=== PATIENT | female | born 1985 | race Caucasian/White ===

== ENCOUNTER 2021-11-29 06:10 | Emergency (ER) | payer MEDICAID ==
[~2021-11-29] VITALS: Ht 160 cm; Wt 59.9 kg
[2021-11-29 06:17] VITALS: BP 124/77
--- NOTE | 2021-11-29 06:23 | NUR ---
PT TAKEN TO BED 08.
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
--- NOTE | 2021-11-29 06:44 | NUR ---
[address] [place] [address] CONTACTED REFERENCE NUMBER [id number], SPOKE TO DISPATCH RICKIE. PAUL STATED THEY WILL PD OUT AND SEE IF THEY CAN COLLECT MORE INFORMATION AND WILL CONTACT [place] PD IF NEEDED.
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
[2021-11-29] MEDS ORDERED: MORPHINE SULFATE 4 MG/ML SYR IVP ONE (06:50)
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
[2021-11-29 07:33] LABS: BASOPHILS % (AUTO) 0.3 % (0.0-2.0); EOSINOPHILS % (AUTO) 0.5 % (0.0-4.0); HEMATOCRIT 34.4 % (36-48); HEMOGLOBIN 11.5 g/dL (12.0-16.0); LYMPHOCYTES # (AUTO) 1.2 K/uL (2.5-16.5); LYMPHOCYTES % (AUTO) 19.9 % (20.5-51.1); MEAN CORPUSCULAR HEMOGLOBIN 29 pg (27-31); MEAN CORPUSCULAR HGB CONC 33 g/dL (33-37); MONOCYTES # (AUTO) 0.5 K/uL (0.8-1.0); MONOCYTES % (AUTO) 8.2 % (1.7-9.3); NEUTROPHILS # (AUTO) 4.1 K/uL (1.8-7.7); NEUTROPHILS % (AUTO) 71.1 % (42.2-75.2); PLATELET COUNT (AUTO) 231 K/uL (140-450); RED BLOOD CELL COUNT(AUTO) 3.96 MIL/uL (4.20-5.40); RED CELL DISTRIBUTION WIDTH 13.9 % (11.6-13.7); WHITE BLOOD COUNT (AUTO) 5.8 K/uL (4.8-10.8)
[2021-11-29 07:38] LABS: PROTHROMBIN TIME 11.6 secs (10.8-13.4)
[2021-11-29 07:45] LABS: ALBUMIN 3.7 g/dL (3.4-5.0); ANION GAP 8.4 (8-16); CARBON DIOXIDE 27.9 mmol/L (21-32); CREATININE 0.7 mg/dL (0.6-1.3); POTASSIUM 3.3 mmol/L (3.5-5.1); TOTAL BILIRUBIN 0.4 mg/dL (0.0-1.0)
--- NOTE | 2021-11-29 07:45 | NUR ---
PT TO CT VIA WHEELCHAIR
--- NOTE | 2021-11-29 07:48 | NUR ---
RECIEVED REPORT FROM SEJAL LOPEZ
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
--- NOTE | 2021-11-29 08:08 | NUR ---
PT BACK FROM CT. SIDE RAILS UP X1. PT RESTING IN BED
[2021-11-29] MEDS ORDERED: LIDOCAINE 2% 1000 MG/50 ML VIAL INJ ONE (08:45)
--- NOTE | 2021-11-29 09:07 | NUR ---
SUTURE SET UP AT BEDSIDE
--- NOTE | 2021-11-29 10:30 | NUR ---
CASSIE HERNANDEZ AT BEDSIDE SUTURE AND IRRIGATION TO RIGHT EAR AREA.
[2021-11-29] MEDS ORDERED: ACET-10509 PO (11:11)
[2021-11-29 11:26] VITALS: BP 104/59
--- NOTE | 2021-11-29 11:26 | NUR ---
Patient discharged with v/s stable. Written and verbal after care instructions given and explained. Patient verbalized understanding. Ambulatory with steady gait. All questions addressed prior to discharge. Advised to follow up with PMD.
--- NOTE | 2021-11-29 11:27 | NUR ---
Chart checked and completed.
== END 2021-11-29 11:26 | disposition home or self-care (01) ==
LOC: MED 06:10
DX: S00.83XA Contusion of other part of head, initial encounter (principal); H60.01 Abscess of right external ear; D50.9 Iron deficiency anemia, unspecified; I10 Essential (primary) hypertension; Y04.8XXA Assault by other bodily force, initial encounter; Y93.89 Activity, other specified; Y92.89 Other specified places as the place of occurrence of the external cause; Y99.8 Other external cause status
CPT/HCPCS: 36415; 69000; 70450; 70480; 70486; 80053; 81002; 81025; 84703; 85025; 85610; 85730; 96374; 99284; J2001; J2270

== ENCOUNTER 2021-12-08 11:50 | Emergency (ER) | payer MEDICAID ==
[~2021-12-08] VITALS: Ht 162.6 cm; Wt 61.9 kg
[~2021-12-08 11:50] MED LIST: ACET-10509 PO
[2021-12-08 12:05] VITALS: BP 124/63
[2021-12-08 12:08] VITALS: BP 124/63
[2021-12-08] MEDS ORDERED: DIPH25TA53 PO (13:20)
[2021-12-08] MEDS ORDERED: KETO2CRE3 TP (13:20)
== END 2021-12-08 14:05 | disposition home or self-care (01) ==
LOC: MED 11:50
DX: R21 Rash and other nonspecific skin eruption (principal)
CPT/HCPCS: 99283